=== PATIENT | female | born 1960 | race Caucasian/White ===

== ENCOUNTER → 2018-01-25 | Outpatient (CLI) | payer OTHER ==
[~2018-01-25] MED LIST: CEFD300C37 PO; DAPA10TA PO; DIAZ2TAB PO; GLYB5TAB3 PO; INSU100C5 SQ-INSULIN; INSU100V13 SC; ONDA4TAB7 PO; PRED20TA PO; SITA1TBM4 PO
== END | disposition home or self-care (01) ==
LOC: RAD 12:03
PROVIDERS: ATTEND Family Medicine
DX: S19.9XXA Unspecified injury of neck, initial encounter (principal); S06.9X9A Unspecified intracranial injury with loss of consciousness of unspecified duration, initial encounter; X58.XXXA Exposure to other specified factors, initial encounter; Y93.89 Activity, other specified; Y92.89 Other specified places as the place of occurrence of the external cause; Y99.8 Other external cause status
CPT/HCPCS: 70450; 72125